=== PATIENT | female | born 1990 | race Two or more races ===

== ENCOUNTER 2021-09-13 09:23 | Emergency (ER) | payer OTHER ==
[~2021-09-13] VITALS: Ht 157.5 cm; Wt 92.0 kg
[2021-09-13 10:04] VITALS: BP 127/69
[2021-09-13] MEDS ORDERED: DIAZEPAM 5 MG TABLET PO ONE (10:45)
[2021-09-13] MEDS ORDERED: KETOROLAC TROMETHAMINE 30 MG/ML VIAL IM ONE (10:45)
[2021-09-13] MEDS ORDERED: CYCL-397 PO (12:33)
== END 2021-09-13 13:37 | disposition home or self-care (01) ==
LOC: EMS 09:26
DX: M54.50 Low back pain, unspecified (principal); M25.562 Pain in left knee
CPT/HCPCS: 72100; 73562; 81025; 96372; 99284; J1885